=== PATIENT | female | born 1990 | race African-American/Black ===

== ENCOUNTER 2022-11-01 21:04 | Emergency (ER) | payer OTHER ==
[2022-11-01 22:08] LABS: BILIRUBIN,URINE NEGATIVE (NEGATIVE); GLUCOSE, URINE (UA) NEGATIVE (NEGATIVE); KETONES,URINE (UA) NEGATIVE (NEGATIVE); LEUKOCYTE ESTERASE, URINE MODERATE (NEGATIVE); NITRITE,URINE NEGATIVE (NEGATIVE); OCCULT BLOOD,URINE NEGATIVE (NEGATIVE); PH,URINE 6.5 PH (5.0-7.5); PROTEIN,URINE NEGATIVE (NEGATIVE); UROBILINOGEN,URINE 1 (NORMAL) E.U./dL (NORMAL)
[2022-11-01 22:09] LABS: CLARITY,URINE HAZY (CLEAR); HCG UR QUAL POSITIVE
[2022-11-01 22:19] LABS: BACTERIA,URINE Moderate /HPF (None Seen); RBC,URINE 0-5 /HPF (0-5); SQUAMOUS EPITHELIAL CELL,UR MOD Squamous (<= Few)
--- NOTE | 2022-11-02 00:37 | ED Physician Documentation ---
PD HPI FEMALE - Stated complaint Stated Complaint: - Chief complaint Chief Complaint: Abd Pain - History obtained from History obtained from: Patient - Additional information Additional information: HPI from patient. c/o right back and flank pain. She also has midline and left pelvic pain which she feels is different from the right back/flank pain (pain in one area does not radiate to the other). These pains (right flank/back as well as pelvic pain) have been ongoing for at least one month, waxing/waning, at times episodic. There are no inciting/exacerbating/ameliorating factors. Patient is , approximately 17 weeks gestation. She says she has had an ultrasound in this showing normal / expected findings for stage of at the time the US was performed. Patient also describes burning dysuria. 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 KIDNEY INFECTIONS - Past Surgical History Past Surgical History: No - Present Medications Home Medications: Ambulatory Orders Medication Instructions Recorded Confirmed HYDROcod/ACETAM 5/325 [Darden 5/325] 1 tablet PO Q6H PRN #6 tablet 11/02/22 Nitrofurantoin [Macrobid] 100 mg PO BID #14 cap 11/02/22 - Allergies Allergies/Adverse Reactions: Allergies Allergy/AdvReac Type Severity Reaction Status Date / Time No Known Drug Allergies Allergy Verified 11/01/22 21:31 - Social History Does the pt smoke?: No Smoking Status: Never smoker - Immunizations Immunizations are current?: Yes PD ED PE NORMAL - Vitals Vital signs reviewed: Yes - General General: Alert and oriented X 3, No acute distress, Well developed/nourished - HEENT HEENT: Moist mucous membranes - Neck Neck: Supple, no meningeal sign - Cardiac Cardiac: RRR, No murmur - Respiratory Respiratory: No respiratory distress, Clear bilaterally - Abdomen Abdomen: Normal bowel sounds, Soft, Non distended. No: Non tender - Back Back: No CVA TTP - Derm Derm: Normal color, Warm and dry Results - Vitals Vitals: Oxygen O2 Source Room air - Labs Labs: Laboratory Tests 11/01/22 11/01/22 11/02/22 21:53 21:53 01:48 Urine Color YELLOW YELLOW Urine Clarity HAZY CLEAR Urine pH 6.5 6.5 Ur Specific [place] 1.015 1.010 Urine Protein NEGATIVE NEGATIVE Urine Glucose (UA) NEGATIVE NEGATIVE Urine Ketones NEGATIVE NEGATIVE Urine Occult Blood NEGATIVE NEGATIVE Urine Nitrite NEGATIVE NEGATIVE Urine Bilirubin NEGATIVE NEGATIVE Urine Urobilinogen 1 (NORMAL) 1 (NORMAL) Ur Leukocyte Esterase MODERATE H MODERATE H Urine RBC 0-5 0-5 Urine WBC 6-10 H 4-5 Ur Squamous Epith Cells MOD Squamous H MOD Squamous H Urine Bacteria Moderate H Few Ur Microscopic Review INDICATED INDICATED Urine Culture Comments NOT INDICATED NOT INDICATED Urine HCG, Qual POSITIVE PD Medical Decision Making - ED course Complexity details: reviewed results, re-evaluated patient, considered differential, d/w patient ED course: Initial UA with equivocal result: moderate batercia, 6-10 WBC/hpf, but moderate squamous cells. Patient's symptoms are s/o UTI and she is ; would have lower threshold for treatment of UTI in patient. I d/w patient regarding the contamination of specimen as indicated by squamous cells. Options discussed: abx for UTI and no repeat, abx. with repeat sample (so as to allow for culture), abx depending on results of repeat UA, no abx and f/u (I recommended against this , again due to risk of complications in associated with untreated UTI). After further discussion, result of shared decision making is to hold in ED until a second UA results can be obtained, and will base treatment on this second result. Unfortunately, between waiting for second UA to be available (she had just urinated shortly before discussion regarding the above options) and combination of ED staffing with required intensity of care for the other patients in ED, there was delay of a few hours before the next urine sample was provide, resulted, and opportunity for me to discuss results w/ patient and discuss with her potential treatments, diagnoses, follow up recommendations, and return precautions. Significant confounding/complicating/delaying factor was the lack of US services at [facility] on overnight shift. US could be advantageous to assess , placenta, and pathology such as free pelvic fluid , ovarian cyst. Second UA is again contaminated with squamous cells. This first UA results were minimally into ranges of abnormal results to suggest UTI, and second UA results are just below threshold for UTI diagnosis (both UA results are considered skewed in their results given squamous cell contamination). Patient has been in ED for several hours at this point. 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 Patient is agreeable with this plan Departure - Departure Disposition: 01 Home, Self Care Clinical Impression: Urinary tract infection Qualifiers: Urinary tract infection type: acute cystitis Hematuria presence: without hematuria Qualified Code(s): N30.00 - Acute cystitis without hematuria Condition: Good Instructions: ED UTI Cystitis Female, ED Pelvic Pain Preg UKO 2 or 3 Tri Follow-Up: Linda Molina MD [Provider Admit Priv/Credential] - Prescriptions: Nitrofurantoin [Macrobid] 100 mg PO BID #14 cap HYDROcod/ACETAM 5/325 [Darden 5/325] 1 tablet PO Q6H PRN #6 tablet PRN Reason: Pain Comments: We have performed two urinalysis tests tonight. They are both borderline positive for urinary tract infection, but, unfortunately, they both have a lot of skin cells which makes it less clear if you are having a UTI or if this is simple bacteria that is normally found on the skin (the presence of skin cells in a urine specimen makes the results unreliable). Because you have been in the emergency department for extensive amount of time, and given the danger of a urinary tract infection in , it is prudent to put you back on a course of antibiotics in case you are having urinary tract infection. This is also considering that you are having symptoms of UTI. It is not clear what is causing your back/flank pain, as well as your pelvic pain. Certainly, you should follow-up with [facility] as soon as can be arranged. I have provided information for the on-call [facility] for [facility] (elsewhere on these discharge sheets); you can contact that office later this morning when they open to see if they can accommodate follow-up. Forms: PCP List Discharge Date/Time: 11/02/22 04:00
[2022-11-02 02:48] LABS: BILIRUBIN,URINE NEGATIVE (NEGATIVE); GLUCOSE, URINE (UA) NEGATIVE (NEGATIVE); KETONES,URINE (UA) NEGATIVE (NEGATIVE); LEUKOCYTE ESTERASE, URINE MODERATE (NEGATIVE); NITRITE,URINE NEGATIVE (NEGATIVE); OCCULT BLOOD,URINE NEGATIVE (NEGATIVE); PH,URINE 6.5 PH (5.0-7.5); PROTEIN,URINE NEGATIVE (NEGATIVE); UROBILINOGEN,URINE 1 (NORMAL) E.U./dL (NORMAL)
[2022-11-02 02:52] LABS: CLARITY,URINE CLEAR (CLEAR)
[2022-11-02 02:54] LABS: BACTERIA,URINE Few /HPF (None Seen); RBC,URINE 0-5 /HPF (0-5); SQUAMOUS EPITHELIAL CELL,UR MOD Squamous (<= Few)
[2022-11-02] MEDS ORDERED: NITROFURANTOIN MACRO 100 MG CAPSULE PO STA (03:27)
[2022-11-02] MEDS ORDERED: HYDROcod/ACET 5/325 Prepack 4 PO STA (03:27)
[2022-11-02 04:55] VITALS: BP 102/56; O2SAT 98
== END 2022-11-02 04:00 | disposition home or self-care (01) ==
LOC: ED 21:04
DX: O23.12 Infections of bladder in pregnancy, second trimester (principal); Z3A.17 17 weeks gestation of pregnancy; Z87.440 Personal history of urinary (tract) infections
CPT/HCPCS: 81001; 81025; 99283; A9270; 81003; 84702; 87086

== ENCOUNTER 2022-11-06 11:16 | Emergency (ER) | payer OTHER ==
[2022-11-06 11:32] VITALS: BP 108/70; O2SAT 97
--- NOTE | 2022-11-06 12:43 | ED Physician Documentation ---
History of Present Illness - Stated complaint Stated Complaint: DECREASED MOVEMENT - Chief complaint Chief Complaint: General - History obtained from History obtained from: Patient - Additonal information Additional information: The patient comes to the emergency department chief complaint of not feeling the baby move since yesterday. She is about 18 weeks and denies any vaginal bleeding or fluid leakage. She has not been following with OB because she just moved here and is trying to get established. She has been before. She is otherwise healthy. No other complaints at this time. 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 : Other HEENT: None Psych: None Musculoskeletal: None Derm: None - Past Surgical History Past Surgical History: No - Present Medications Home Medications: Ambulatory Orders Medication Instructions Recorded Confirmed No Known Home Medications 11/06/22 11/06/22 - Allergies Allergies/Adverse Reactions: Allergies Allergy/AdvReac Type Severity Reaction Status Date / Time No Known Drug Allergies Allergy Verified 11/01/22 21:31 - Social History Does the pt smoke?: No Smoking Status: Never smoker - Immunizations Immunizations are current?: Yes PD ED PE NORMAL - Vitals Vital signs reviewed: Yes - General General: Alert and oriented X 3, No acute distress, Well developed/nourished - HEENT HEENT: Atraumatic, PERRL, EOMI, Moist mucous membranes - Neck Neck: Supple, no meningeal sign - Cardiac Cardiac: RRR, No murmur - Respiratory Respiratory: No respiratory distress, Clear bilaterally - Abdomen Abdomen: Soft, Non tender, Non distended - Derm Derm: Normal color, Warm and dry, No rash - Extremities Extremities: No deformity, No edema - Neuro Neuro: Alert and oriented X 3 - Psych Psych: Normal mood, Normal affect Results - Vitals Vitals: Vital Signs - 24 hr 11/06/22 11:25 Temperature 36.7 C Heart Rate 97 Respiratory 20 Rate Blood Pressure 108/70 O2 Saturation 97 Oxygen O2 Source Room air - Rads (name of study) OB ultrasound Relevant Findings:: Final report received, See rad report PD Medical Decision Making - ED course Complexity details: reviewed results, re-evaluated patient, considered d ifferential, d/w patient ED course: Ultrasound showed a viable IUP with lots of movement and a good heart rate in the 150s. I discussed these findings with the patient. She states that she does have an appointment coming up in our women's clinic and I have encouraged her to keep this. We have discussed the need for follow-up and the usual indications for return. Departure - Departure Disposition: 01 Home, Self Care Clinical Impression: Second trimester Condition: Stable Instructions: Preg 2nd Trimester Comments: Your ultrasound looks great. Your baby's heart rate and movement are as they should be. Please make the next available appointment to follow-up with OB. Forms: PCP List Discharge Date/Time: 11/06/22 12:51
--- NOTE | 2022-11-06 13:04 | Ultrasound Report ---
PROCEDURE: OB 14+ Weeks INDICATIONS: decreased movement OUTSIDE/PRIOR DATING DATA: Outside due date per patient: 04/09/2023: TECHNIQUE: Real-time scanning was performed of the fetus, with image documentation. Endovaginal scanning: Not performed. COMPARISON: None. FINDINGS: General: A single live intrauterine gestation is present. Presentation: Cephalic Placenta: Placental position is anterior, without previa. Amniotic fluid index: Not measured, within normal limits by visual inspection. heart rate: 157 beats per minute. Maternal cervical canal: 4.1 cm long; normal length is 2.5 cm or more. The cervix appears closed. movement is observed. breathing motion is confirmed. IMPRESSION: Normal heart rate, 157 bpm Normal film breathing motion and movement can be seen. Note: Concordant preliminary findings given by the cell reliner upon the completion of the examination to Dr. Ma. Reviewed by: Adiyta Perez MD on 11/06/2022 12:02 PM AMANDA Approved by: Aditya Perez MD on 11/06/2022 12:02 PM AMANDA Station ID: [id number]
== END 2022-11-06 12:51 | disposition home or self-care (01) ==
LOC: ED 11:16
DX: O36.8120 Decreased fetal movements, second trimester, not applicable or unspecified (principal); Z3A.18 18 weeks gestation of pregnancy
CPT/HCPCS: 99283; 99284

== ENCOUNTER 2022-11-08 08:00 | Outpatient (CLI) | payer OTHER ==
[2022-11-08 21:58] LABS: CHLAMYDIA TRACHOMATIS DNA NEGATIVE (NEGATIVE); NEISSERIA GONORRHOEAE DNA NEGATIVE (NEGATIVE); TRICHOMONAS VAGINALIS DNA NEGATIVE (NEGATIVE)
== END 2022-11-08 23:59 | disposition home or self-care (01) ==
LOC: LAB.WC 08:00
PROVIDERS: ATTEND Nurse Practitioner
DX: Z34.90 Encounter for supervision of normal pregnancy, unspecified, unspecified trimester (principal); Z36.89 Encounter for other specified antenatal screening
CPT/HCPCS: 36415; 85025; 86592; 86762; 86787; 86803; 86850; 86900; 86901; 87340; 87389; 87491; 87591; 87661

== ENCOUNTER 2022-11-08 14:28 | Outpatient (CLI) | payer OTHER ==
[2022-11-08 14:59] LABS: BASOPHILS % (AUTO) 0.5 %; EOSINOPHILS # (AUTO) 0.2 10^3/uL (0.0-0.7); EOSINOPHILS % (AUTO) 2.4 %; HCT - HEMATOCRIT 37.3 % (37.0-47.0); HGB - HEMOGLOBIN 12.5 g/dL (12.0-16.0); LYMPHOCYTES # (AUTO) 1.6 10^3/uL (1.5-3.5); LYMPHOCYTES % (AUTO) 25.6 %; MEAN CORPUSCULAR HEMOGLOBIN 32.3 pg (27.0-31.0); MEAN CORPUSCULAR HGB CONC 33.5 g/dL (32.0-36.0); MEAN CORPUSCULAR VOLUME 96.4 fL (81.0-99.0); MEAN PLATELET VOLUME 8.8 fL (7.9-10.8); MONOCYTES # (AUTO) 0.6 10^3/uL (0.0-1.0); NEUTROPHILS # (AUTO) 3.8 10^3/uL (1.5-6.6); NEUTROPHILS % (AUTO) 61.3 %; PLT - PLATELET COUNT 278 10^3/uL (130-450); RED BLOOD COUNT 3.87 10^6/uL (4.20-5.40); RED CELL DISTRIBUTION WIDTH 12.2 % (12.0-15.0); WHITE BLOOD COUNT 6.2 x10^3/uL (4.8-10.8)
[2022-11-09 04:09] LABS: HBsAG SCREEN Negative (Negative); HCV AB Non Reactive (Non Reactive)
[2022-11-09 05:12] LABS: HIV SCREEN 4TH GENERATION Non Reactive (Non Reactive)
[2022-11-09 06:10] LABS: RPR Non Reactive (Non Reactive)
[2022-11-09 12:09] LABS: VARICELLA-ZOSTER AB IGG 140 index (Immune >165)
== END 2022-11-08 14:29 | disposition home or self-care (01) ==
LOC: LAB 14:28
PROVIDERS: ATTEND Nurse Practitioner
DX: Z34.90 Encounter for supervision of normal pregnancy, unspecified, unspecified trimester (principal); Z36.89 Encounter for other specified antenatal screening
CPT/HCPCS: 36415; 85025; 86592; 86762; 86787; 86803; 86850; 86900; 86901; 87340; 87389

== ENCOUNTER 2022-12-06 19:32 | Outpatient (CLI) | payer OTHER ==
--- NOTE | 2022-12-08 11:51 | Ultrasound Report ---
PROCEDURE: OB F/U or Repeat INDICATIONS: SUPERVISION OF OUTSIDE/PRIOR DATING DATA: Last menstrual period (LMP): 06/03/2022. LMP-based estimated date of delivery (LUPE): 03/10/2023. First dating scan (date and location): 11/21/2022. Estimated date of delivery (LUPE) from first dating scan: 04/10/2023. The below data below was generated using the ultrasound LUPE of 04/10/2023 TECHNIQUE: Real-time scanning was performed of the fetus, with image documentation. Endovaginal scanning: Not performed. COMPARISON: None. FINDINGS: General: A single living intrauterine gestation is present. Presentation: Breech Placenta: Placental position is anterior, without previa. Amniotic fluid index: 16.5 cm, within normal limits for gestational age. heart rate: 150 beats per minute. Maternal cervical canal: 3.8 cm long; normal length is 2.5 cm or more. anatomy: Normal ventricles/cord plexus, face, lips and orbits within normal limits. Nuchal afshan on is normal. Kidney region and urinary bladder are unremarkable. IMPRESSION: Normal brain and facial anatomy. This completes the anatomy survey. Reviewed by: Deo Barba on 12/08/2022 11:49 AM PDT Approved by: Deo Barba on 12/08/2022 11:49 AM PDT Station ID: [id number]
== END 2022-12-06 19:33 | disposition home or self-care (01) ==
LOC: DI 19:32
PROVIDERS: ATTEND Nurse Practitioner
DX: Z34.90 Encounter for supervision of normal pregnancy, unspecified, unspecified trimester (principal); Z36.89 Encounter for other specified antenatal screening

== ENCOUNTER 2022-12-10 08:00 | Outpatient (CLI) | payer OTHER ==
[2022-12-10 18:50] LABS: BASOPHILS % (AUTO) 0.5 %; EOSINOPHILS # (AUTO) 0.1 10^3/uL (0.0-0.7); HCT - HEMATOCRIT 37.4 % (37.0-47.0); HGB - HEMOGLOBIN 12.1 g/dL (12.0-16.0); LYMPHOCYTES # (AUTO) 1.4 10^3/uL (1.5-3.5); LYMPHOCYTES % (AUTO) 24.6 %; MEAN CORPUSCULAR HGB CONC 32.4 g/dL (32.0-36.0); MEAN CORPUSCULAR VOLUME 98.9 fL (81.0-99.0); MONOCYTES # (AUTO) 0.5 10^3/uL (0.0-1.0); MONOCYTES % (AUTO) 9.3 %; NEUTROPHILS # (AUTO) 3.6 10^3/uL (1.5-6.6); NEUTROPHILS % (AUTO) 63.1 %; PLT - PLATELET COUNT 294 10^3/uL (130-450); RED BLOOD COUNT 3.78 10^6/uL (4.20-5.40); RED CELL DISTRIBUTION WIDTH 12.4 % (12.0-15.0); WHITE BLOOD COUNT 5.6 x10^3/uL (4.8-10.8)
[2022-12-10 19:10] LABS: ALBUMIN 3.4 g/dL (3.2-5.5); ALBUMIN/GLOBULIN RATIO 1.1 (1.0-2.2); BILIRUBIN,TOTAL 0.3 mg/dL (0.2-1.0); CALCIUM 9.2 mg/dL (8.5-10.3); CREATININE 0.9 mg/dL (0.6-1.3); POTASSIUM 4.2 mmol/L (3.5-4.5); TOTAL PROTEIN 6.4 g/dL (6.4-8.9)
== END 2022-12-10 23:59 | disposition home or self-care (01) ==
LOC: LAB.N 08:00
PROVIDERS: ATTEND Registered Nurse
DX: R30.0 Dysuria (principal); R82.2 Biliuria
CPT/HCPCS: 36415; 80053; 83690; 85025; 87086

== ENCOUNTER 2022-12-22 08:00 | Outpatient (CLI) | payer OTHER ==
[2022-12-22 20:24] LABS: BACTERIAL VAGINOSIS DNA NEGATIVE (NEGATIVE); CANDIDA GLABRATA DNA NEGATIVE (NEGATIVE); CANDIDA GROUP DNA POSITIVE (NEGATIVE); CANDIDA KRUSEI DNA NEGATIVE (NEGATIVE); TRICHOMONAS VAGINALIS DNA NEGATIVE (NEGATIVE)
== END 2022-12-22 23:59 | disposition home or self-care (01) ==
LOC: LAB.WC 08:00
PROVIDERS: ATTEND Obstetrics & Gynecology
DX: L29.8 Other pruritus (principal)
CPT/HCPCS: 81514

== ENCOUNTER 2022-12-29 12:53 | Outpatient (CLI) | payer OTHER | END 2022-12-29 12:54 | disposition home or self-care (01) | LOC: LAB 12:53 | PROVIDERS: ATTEND Obstetrics & Gynecology | DX: Z53.9 Procedure and treatment not carried out, unspecified reason (principal) | CPT/HCPCS: 82950; 85027 ==

== ENCOUNTER 2023-01-03 12:11 | Outpatient (CLI) | payer OTHER ==
[2023-01-03 18:04] LABS: HCT - HEMATOCRIT 36.5 % (37.0-47.0); HGB - HEMOGLOBIN 12.1 g/dL (12.0-16.0); MEAN CORPUSCULAR HEMOGLOBIN 31.8 pg (27.0-31.0); MEAN CORPUSCULAR HGB CONC 33.2 g/dL (32.0-36.0); MEAN CORPUSCULAR VOLUME 95.8 fL (81.0-99.0); MEAN PLATELET VOLUME 10.3 fL (7.9-10.8); RED BLOOD COUNT 3.81 10^6/uL (4.20-5.40); RED CELL DISTRIBUTION WIDTH 12.6 % (12.0-15.0); WHITE BLOOD COUNT 5.9 x10^3/uL (4.8-10.8)
[2023-01-03 18:37] LABS: THYROID STIMULATING HORMONE 1.38 uIU/mL (0.34-5.60)
== END 2023-01-03 12:12 | disposition home or self-care (01) ==
LOC: LAB.N 12:11
PROVIDERS: ATTEND Obstetrics & Gynecology
DX: O99.342 Other mental disorders complicating pregnancy, second trimester (principal)
CPT/HCPCS: 36415; 82950; 84443; 85027

== ENCOUNTER 2023-01-06 08:00 | Outpatient (CLI) | payer OTHER ==
[2023-01-06 20:12] LABS: BACTERIAL VAGINOSIS DNA NEGATIVE (NEGATIVE); CANDIDA GLABRATA DNA NEGATIVE (NEGATIVE); CANDIDA GROUP DNA POSITIVE (NEGATIVE); CANDIDA KRUSEI DNA NEGATIVE (NEGATIVE); TRICHOMONAS VAGINALIS DNA NEGATIVE (NEGATIVE)
== END 2023-01-06 23:59 | disposition home or self-care (01) ==
LOC: LAB.WC 08:00
PROVIDERS: ATTEND Nurse Practitioner
DX: N89.8 Other specified noninflammatory disorders of vagina (principal)
CPT/HCPCS: 81514

== ENCOUNTER 2023-01-27 15:42 | Outpatient (CLI) | payer OTHER ==
[2023-01-27 16:14] VITALS: BP 109/59
[2023-01-27 16:42] LABS: BASOPHILS % (AUTO) 0.3 %; EOSINOPHILS # (AUTO) 0.2 10^3/uL (0.0-0.7); HCT - HEMATOCRIT 36.5 % (37.0-47.0); HGB - HEMOGLOBIN 11.9 g/dL (12.0-16.0); LYMPHOCYTES # (AUTO) 1.5 10^3/uL (1.5-3.5); LYMPHOCYTES % (AUTO) 19.7 %; MEAN CORPUSCULAR HEMOGLOBIN 31.7 pg (27.0-31.0); MEAN CORPUSCULAR HGB CONC 32.6 g/dL (32.0-36.0); MEAN CORPUSCULAR VOLUME 97.3 fL (81.0-99.0); MEAN PLATELET VOLUME 9.2 fL (7.9-10.8); MONOCYTES # (AUTO) 0.7 10^3/uL (0.0-1.0); NEUTROPHILS # (AUTO) 5.1 10^3/uL (1.5-6.6); NEUTROPHILS % (AUTO) 68.5 %; PLT - PLATELET COUNT 251 10^3/uL (130-450); RED BLOOD COUNT 3.75 10^6/uL (4.20-5.40); RED CELL DISTRIBUTION WIDTH 12.5 % (12.0-15.0); WHITE BLOOD COUNT 7.4 x10^3/uL (4.8-10.8)
--- NOTE | 2023-01-27 17:10 | PROVIDER PROGRESS NOTE ---
- HPI Chief Complaint: GI symptoms Current : Vital Signs Temperature 98.1 F 01/27/23 15:56 Heart Rate 76 01/27/23 15:56 Respiratory Rate 16 01/27/23 15:56 Blood Pressure 109/59 L 01/27/23 15:56 Temperature 98.1 F 01/27/23 15:56 Heart Rate 76 01/27/23 15:56 Respiratory Rate 16 01/27/23 15:56 Blood Pressure 109/59 L 01/27/23 15:56 O2 Saturation If not protocol: Oxygen Flow, liters/minute - Procedures OB Procedure Performed: NST Diagnosis/Indication for NST: Other (Contractions) Service Date of procedure: 01/27/23 (Read 01/27/23) Procedure Details: Patient is a 32-year-old -0-3-1 at 29 weeks 4 days gestation presenting today for vaginal pressure. She has been somewhat sick with some diarrhea and some nausea although no vomiting. No fever or chills. Has had decreased intake. Denies dysuria. No known sick contacts. Physical Exam Constitutional: alert, no acute distress, Appears very comfortable. Cardiovascular: Regular rate and rhythm. Respiratory: no respiratory distress. Abdomen: Nondistended. Gravid. Mild suprapubic tenderness. No CVA tenderness. Psych: affect and mood appropriate, normal interaction, good eye contact. FHT: 130 beats per baseline, moderate variability, accelerations present, no decelerations. Reactive NST [place]: 2-6, irregular SVE: 0/0/-3 Labs: WBC 7.4. UA not concerning for UTI. 1. 29 weeks gestation 2. False labor -Patient observed in triage for 2 hours and was unchanged. Discharged with labor precautions 3. Gastroenteritis: -Encouraged hydration, Imodium as needed
[2023-01-27 17:26] LABS: BILIRUBIN,URINE NEGATIVE (NEGATIVE); GLUCOSE, URINE (UA) NEGATIVE (NEGATIVE); KETONES,URINE (UA) NEGATIVE (NEGATIVE); LEUKOCYTE ESTERASE, URINE SMALL (NEGATIVE); NITRITE,URINE NEGATIVE (NEGATIVE); OCCULT BLOOD,URINE NEGATIVE (NEGATIVE); PH,URINE 6.5 PH (5.0-7.5); PROTEIN,URINE NEGATIVE (NEGATIVE); UROBILINOGEN,URINE 2 E.U./dL (NORMAL)
[2023-01-27 17:33] LABS: BACTERIA,URINE Many /HPF (None Seen); CLARITY,URINE HAZY (CLEAR); MUCUS,URINE Few Strands; RBC,URINE 0-5 /HPF (0-5); SQUAMOUS EPITHELIAL CELL,UR MANY Squamous (<= Few)
== END 2023-01-27 18:54 | disposition home or self-care (01) ==
LOC: WFO 15:42 → FBP 15:44 → WFO 18:54
PROVIDERS: ATTEND Obstetrics & Gynecology
DX: O47.03 False labor before 37 completed weeks of gestation, third trimester (principal); O99.613 Diseases of the digestive system complicating pregnancy, third trimester; K52.9 Noninfective gastroenteritis and colitis, unspecified; Z3A.29 29 weeks gestation of pregnancy
CPT/HCPCS: 36415; 59025; 81001; 85025; 87086; 99215

== ENCOUNTER 2023-02-06 03:43 | Outpatient (CLI) | payer OTHER ==
[2023-02-06] MEDS ORDERED: ONDANSETRON 4 MG/2 ML VIAL IVP PRN (04:49)
[2023-02-06] MEDS ORDERED: LACTATED RINGERS 1,000 ML IV ONE ×2 (04:49→06:24)
[2023-02-06] MEDS ORDERED: FAMOTIDINE 20 MG/2 ML VIAL IVP SCH (06:30)
[2023-02-06 06:48] VITALS: BP 106/60
[2023-02-06] MEDS ORDERED: ONDANSETRON 4 MG/2 ML VIAL IVP STA (07:46)
[2023-02-06 07:57] VITALS: O2SAT 97
--- NOTE | 2023-02-06 10:23 | PROVIDER PROGRESS NOTE ---
- HPI Chief Complaint: Other (Vomitting and Diarrhea) Current : Current EDU 04/10/23 Gestation 31 Weeks and 0 Days 5 Para 1 Vital Signs Temperature 98.6 F 02/06/23 04:15 Heart Rate 95 02/06/23 04:15 Respiratory Rate 18 02/06/23 04:15 Blood Pressure 107/74 02/06/23 04:15 O2 Saturation 97 02/06/23 04:15 Temperature 97.7 F 02/06/23 08:52 Heart Rate 85 02/06/23 08:52 Respiratory Rate 16 02/06/23 08:52 Blood Pressure 106/60 02/06/23 08:52 O2 Saturation 97 02/06/23 04:15 If not protocol: Oxygen Flow, liters/minute - Exam VSS NAD Conjunctiva pink, pale sclera no increased work of breathing Abd soft, NT, ND, visibly gravid at EFM: 145mod sarahy + A cells no D cells, reactive [place]: acontractile Cx: deferred Ext: neg CCE U/S: BPP 10/11 - showing reassuring status right now EFW 45%ile - showing reassuring growth throughout the . - Procedures OB Procedure Performed: NST Diagnosis/Indication for NST: Decreased movement NST Procedure: NST Procedure Start Date 02/06/23 Start Time 05:00 Stop Time 05:30 Vibroacoustic Stimulation Used No Patient States Movement Yes Service Date of procedure: 02/06/23 Procedure Details: reactive and reassuring Findings: patient given 1+ L of IVF, received NST baby found to be reactive mom reports that baby does move - though less / differently than before so we ordered a BPP as well as growth to check for acute or chronic processes both reassuring strict precautions reviewed, WOC so additional precautions taken. for GI upset - pepcid IV x1 given for the streaks of blood in the vomit and zofran. did soil herself x1 while here -- would like for whatever is causing this to get out of her system. has no identifiable source of this illness. no sick contacts, no fevers, no recent concerning food ingestion. - Plan Plan: D/C home with precautions. D/C home with ODT zofran. s/p 1+L of IVF
--- NOTE | 2023-02-06 11:57 | Ultrasound Report ---
PROCEDURE: OB F/U or Repeat INDICATIONS: growth OUTSIDE/PRIOR DATING DATA: Last menstrual period (LMP): 06/03/2022. LMP-based estimated date of delivery (LUPE): 03/10/2023. First dating scan (date and location): 11/21/2022. Estimated date of delivery (LUPE) from first dating scan: 04/10/2023. The below data below was generated using the ultrasound LUPE of 04/10/2023 TECHNIQUE: Real-time scanning was performed of the fetus, with image documentation and biometric measurements. COMPARISON: OB ultrasound 11/06/2022 FINDINGS: General: A single living intrauterine gestation is present. Presentation: Vertex Placenta: Placental position is anterior, without previa. Amniotic fluid index: 16.9 cm, within normal limits for gestational age. heart rate: 147 beats per minute. Maternal cervical canal: 3.3 cm long; normal length is 2.5 cm or more. biometrics: Biparietal diameter: 7.5 cm 30 weeks 1 day 17th percentile Head circumference: 27.9 cm 30 weeks 4 days 8 percentile Abdominal circumference: 27.3 cm 31 weeks 2 days 57th percentile Femur length: 6.1 cm 31 weeks 4 days 58th percentile Estimated gestational age from initial scan: 31 weeks 0 days Composite gestational age from present scan: 30 weeks 6 days Estimated weight and percentile: 1721 g 45th percentile Measurement variability in biometric dating: +/- 10 days from 12-20 weeks gestation, +/- 2 weeks from 20-30 weeks gestation, +/- 3 weeks at 30 weeks gestation or more. Other: Umbilical ratio is 3.5, 2.3, 1.9 IMPRESSION: Single live intrauterine . BPP 8 out of 8 Head circumference is noted at the 8th percentile Reviewed by: Marisa Schaffer MD on 02/06/2023 11:56 AM PST Approved by: Marisa Schaffer MD on 02/06/2023 11:56 AM PST Station ID: [id number]
--- NOTE | 2023-02-06 12:47 | Ultrasound Report ---
PROCEDURE: OB Biophysical Profile INDICATIONS: decreased movement OUTSIDE/PRIOR DATING DATA: Last menstrual period (LMP): 06/03/2022. LMP-based estimated date of delivery (LUPE): 03/10/2023. First dating scan (date and location): 11/21/2022. Estimated date of delivery (LUPE) from first dating scan: 04/10/2023. The below data below was generated using the ultrasound LUPE of 04/10/2023 TECHNIQUE: Real-time scanning was performed of the fetus, with image documentation and biometric measurements. COMPARISON: OB ultrasound 11/06/2022 FINDINGS: General: A single living intrauterine gestation is present. Presentation: Vertex Placenta: Placental position is anterior, without previa. Amniotic fluid index: 16.9 cm, within normal limits for gestational age. heart rate: 147 beats per minute. Maternal cervical canal: 3.3 cm long; normal length is 2.5 cm or more. biometrics: Biparietal diameter: 7.5 cm 30 weeks 1 day 17th percentile Head circumference: 27.9 cm 30 weeks 4 days 8 percentile Abdominal circumference: 27.3 cm 31 weeks 2 days 57th percentile Femur length: 6.1 cm 31 weeks 4 days 58th percentile Estimated gestational age from initial scan: 31 weeks 0 days Composite gestational age from present scan: 30 weeks 6 days Estimated weight and percentile: 1721 g 45th percentile Measurement variability in biometric dating: +/- 10 days from 12-20 weeks gestation, +/- 2 weeks from 20-30 weeks gestation, +/- 3 weeks at 30 weeks gestation or more. Other: Umbilical ratio is 3.5, 2.3, 1.9 IMPRESSION: Single live intrauterine . BPP 8 out of 8 Head circumference is noted at the 8th percentile Reviewed by: Marisa Schaffer MD on 02/06/2023 12:45 PM PST Approved by: Marisa Schaffer MD on 02/06/2023 12:45 PM PST Station ID: [id number]
== END 2023-02-06 08:30 | disposition home or self-care (01) ==
LOC: WFO 03:43 → FBP 03:46 → WFO 08:30
PROVIDERS: ATTEND Obstetrics & Gynecology
DX: O36.8130 Decreased fetal movements, third trimester, not applicable or unspecified (principal); Z3A.31 31 weeks gestation of pregnancy; O99.891 Other specified diseases and conditions complicating pregnancy; R19.7 Diarrhea, unspecified; O99.613 Diseases of the digestive system complicating pregnancy, third trimester; K92.0 Hematemesis
CPT/HCPCS: 59025; 76816; 76819; 96361; 96374; 96375; 96376; 99215; J7120

== ENCOUNTER 2023-02-21 16:20 | Outpatient (CLI) | payer OTHER ==
[2023-02-21 16:54] LABS: BASOPHILS % (AUTO) 0.2 %; EOSINOPHILS % (AUTO) 0.5 %; HCT - HEMATOCRIT 33.1 % (37.0-47.0); HGB - HEMOGLOBIN 11.1 g/dL (12.0-16.0); LYMPHOCYTES # (AUTO) 0.5 10^3/uL (1.5-3.5); LYMPHOCYTES % (AUTO) 8.4 %; MEAN CORPUSCULAR HEMOGLOBIN 31.3 pg (27.0-31.0); MEAN CORPUSCULAR HGB CONC 33.5 g/dL (32.0-36.0); MEAN CORPUSCULAR VOLUME 93.2 fL (81.0-99.0); MEAN PLATELET VOLUME 9.4 fL (7.9-10.8); MONOCYTES # (AUTO) 0.7 10^3/uL (0.0-1.0); MONOCYTES % (AUTO) 12.3 %; NEUTROPHILS # (AUTO) 4.7 10^3/uL (1.5-6.6); NEUTROPHILS % (AUTO) 77.9 %; PLT - PLATELET COUNT 208 10^3/uL (130-450); RED BLOOD COUNT 3.55 10^6/uL (4.20-5.40); RED CELL DISTRIBUTION WIDTH 12.1 % (12.0-15.0)
[2023-02-21] MEDS ORDERED: ACETAMINOPHEN 325 MG TABLET PO PRN (16:57)
[2023-02-21 17:07] LABS: ALBUMIN 3.1 g/dL (3.2-5.5); ALBUMIN/GLOBULIN RATIO 1.1 (1.0-2.2); BILIRUBIN,TOTAL 0.4 mg/dL (0.2-1.0); CALCIUM 8.7 mg/dL (8.5-10.3); CREATININE 0.7 mg/dL (0.6-1.3); POTASSIUM 3.2 mmol/L (3.5-4.5); TOTAL PROTEIN 5.9 g/dL (6.4-8.9)
[2023-02-21] MEDS: LACTATED RINGERS 1,000 ML IV SCH ×2 (17:09→18:25)
[2023-02-21 18:18] VITALS: BP 121/59; O2SAT 98
[2023-02-21 18:19] LABS: INFLUENZA A- RESP PCR PANEL NOT DETECTED; INFLUENZA B - RESP PCR PANEL NOT DETECTED; RSV- RESP PCR PANEL NOT DETECTED; SARS-CoV-2 -RESP PCR PANEL DETECTED
--- NOTE | 2023-02-21 18:36 | PROVIDER PROGRESS NOTE ---
- HPI Chief Complaint: Other (Patient presents for headache, fever, generalized malaise. Positive movement. Denies vaginal bleeding and leakage of fluid. Denies shortness of breath. Has had congestion and runny nose.She also reports a fever of 102.0 at home. Patient has been afebrile here) Current : Vital Signs Temperature 99.0 F 02/21/23 16:36 Heart Rate 131 H 02/21/23 16:36 Respiratory Rate 20 02/21/23 16:36 Blood Pressure 118/67 02/21/23 16:36 Temperature 98.2 F 02/21/23 18:12 Heart Rate 116 H 02/21/23 18:12 Respiratory Rate 16 02/21/23 18:12 Blood Pressure 121/59 L 02/21/23 18:12 O2 Saturation 98 02/21/23 18:12 If not protocol: Oxygen Flow, liters/minute - Exam Gen: NAD Pulm: CTA bilaterally Cardiac: RRR Abdomen: gravid, non tender FHT: initially tachycardic, after fluid bolus 150, moderate variability, +accels, no decels, reactive NST - Procedures OB Procedure Performed: NST Diagnosis/Indication for NST: Other (covid) NST Procedure: NST Procedure Start Time 05:00 Stop Time 05:30 33+1 weeks covid+ initially tachycardic, after fluid bolus 150, moderate variability, +accels, no decels, reactive NST - Plan Plan: COVID-positive on swab. Recommended Paxlovid and Rx sent. Advised patient to return for respiratory difficulty, decreased movement, signs and symptoms of labor or any other concerns. Discussed increased risk with COVID in .
--- NOTE | 2023-02-21 18:41 | Discharge Plan ---
Discharge Plan Problem Reviewed?: Yes Disposition: Home, Self Care Condition: Good No Smoking: If you smoke, Please STOP! Call for help.
== END 2023-02-21 18:56 | disposition home or self-care (01) ==
LOC: WFO 16:20 → FBP 16:23 → WFO 18:56
PROVIDERS: ATTEND Obstetrics & Gynecology Obstetrics
DX: O98.513 Other viral diseases complicating pregnancy, third trimester (principal); U07.1 COVID-19; Z3A.33 33 weeks gestation of pregnancy; O99.891 Other specified diseases and conditions complicating pregnancy; R00.0 Tachycardia, unspecified
CPT/HCPCS: 36415; 59025; 80053; 85025; 87637; 96360; 99213; A9270; J7120

== ENCOUNTER 2023-03-08 11:46 | Outpatient (CLI) | payer OTHER ==
--- NOTE | 2023-03-08 12:12 | PROCEDURE REPORT ---
- HPI Current EDU 04/10/23 Gestation 35 Weeks and 2 Days 5 Para 1 Vital Signs Temperature 97.8 F 03/08/23 12:13 Heart Rate 103 H 03/08/23 12:13 Respiratory Rate 18 03/08/23 12:13 Blood Pressure 111/63 03/08/23 12:13 Temperature 97.8 F 03/08/23 12:13 Heart Rate 103 H 03/08/23 12:13 Respiratory Rate 18 03/08/23 12:13 Blood Pressure 111/63 03/08/23 12:13 O2 Saturation If not protocol: Oxygen Flow, liters/minute - NST Procedure NST Procedure Start Date 03/08/23 Start Time 11:55 Stop Time 12:20 Vibroacoustic Stimulation Used No Patient States Movement Yes: decreased today - Results and Plan Plan: Patient is a 32-year-old -0-4-1 at 35 weeks 2 days gestation here from clinic for NST for decreased movement. She has felt movement since arrival. NST Performed 03/08/2023 NST Read 03/08/2023 FHT: 150 bpm baseline, moderate variability, accelerations present, no decelerations. Reactive NST [place]: 2 to 6 minutes, soft, declined cervical exam RAY 12 cm Diagnosis Decreased movement 35 weeks gestation
[2023-03-08 12:24] VITALS: BP 111/63
== END 2023-03-08 13:30 | disposition home or self-care (01) ==
LOC: WFO 11:46 → FBP 11:48 → WFO 13:30
PROVIDERS: ATTEND Obstetrics & Gynecology
DX: O36.8130 Decreased fetal movements, third trimester, not applicable or unspecified (principal); O99.213 Obesity complicating pregnancy, third trimester; Z3A.35 35 weeks gestation of pregnancy
CPT/HCPCS: 59025

== ENCOUNTER 2023-03-08 16:27 | Outpatient (CLI) | payer OTHER ==
--- NOTE | 2023-03-09 13:09 | Ultrasound Report ---
PROCEDURE: OB Follow up INDICATIONS: OBESITY COMPLICATING OUTSIDE/PRIOR DATING DATA: Last menstrual period (LMP): 06/03/2022. LMP-based estimated date of delivery (LUPE): 03/10/2023. First dating scan (date and location): 11/21/2022. Estimated date of delivery (LUPE) from first dating scan: 04/10/2023. The below data below was generated using the ultrasound LUPE of 04/10/2023 TECHNIQUE: Real-time scanning was performed of the fetus, with image documentation and biometric measurements. Endovaginal scanning: Not performed. COMPARISON: 02/06/2023 FINDINGS: General: A single living intrauterine gestation is present. Presentation: Vertex Placenta: Placental position is anterior, without previa. Amniotic fluid index: 12.8 cm, within normal limits for gestational age. Largest pocket measured 3. 7 cm. heart rate: 148 beats per minute. Maternal cervical canal: 3.8 cm long; normal length is 2.5 cm or more. biometrics: Biparietal diameter: 8.01 cm, 32 weeks and 1 day (1.0 percentile) Head circumference: 30.82 cm, 34 weeks and 3 days (6.0 percentile) Abdominal circumference: 31.25 cm, 35 weeks and 1 day (54.9 percentile) Femur length: 6.75 cm, 34 weeks and 5 days (28 percentile) Estimated gestational age from initial scan: 35 weeks and 2 days Composite gestational age from present scan: 34 weeks and 1 day Estimated weight and percentile: 2482 g (30th percentile) Measurement variability in biometric dating: +/- 10 days from 12-20 weeks gestation, +/- 2 weeks from 20-30 weeks gestation, +/- 3 weeks at 30 weeks gestation or more. Other: Incidental note of a nuchal cord. IMPRESSION: Single living intrauterine gestation with estimated sonographic gestational age of appro ximately 34 weeks and 1 day versus approximately 35 weeks and 2 days by initial ultrasound. Expected interval growth has occurred. Estimated weight of approximately 2482 g which correlates with th e 30th percentile for gestational age. Of note, biparietal diameter measures at the 1.0 percentile an d head circumference measures at the 6.0 percentile. Reviewed by: Jovani Perez MD on 03/09/2023 1:08 PM PST Approved by: Jovani Perez MD on 03/09/2023 1:08 PM [facility] Station ID: [id number]
== END 2023-03-08 16:28 | disposition home or self-care (01) ==
LOC: DI 16:27
PROVIDERS: ATTEND Obstetrics & Gynecology
DX: O99.213 Obesity complicating pregnancy, third trimester (principal); Z3A.00 Weeks of gestation of pregnancy not specified

== ENCOUNTER 2023-03-16 08:00 | Outpatient (CLI) | payer OTHER | END 2023-03-16 23:59 | disposition home or self-care (01) | LOC: LAB.WC 08:00 | PROVIDERS: ATTEND Obstetrics & Gynecology | DX: Z36.85 Encounter for antenatal screening for Streptococcus B (principal) | CPT/HCPCS: 87081; 87181; 87797 ==

== ENCOUNTER 2023-03-22 09:40 | Inpatient (IN) | payer OTHER ==
[2023-03-22] MEDS ORDERED: LACTATED RINGERS 1,000 ML ONE (10:19)
[2023-03-22] MEDS ORDERED: CARBOPROST TROMETHAMINE 250 MCG/ML AMP IM PRN (10:21)
[2023-03-22] MEDS ORDERED: AMPICILLIN 2 GM in SODIUM CHLORIDE 0.9% MINIBAG 100 ML IV ONE (10:21)
[2023-03-22] MEDS ORDERED: METHYLERGONOVINE 0.2 MG/ML VIAL IM PRN (10:21)
[2023-03-22] MEDS ORDERED: hydrALAZINE INJ 20 MG/ML VIAL IVP PRN ×2 (10:21)
[2023-03-22] MEDS ORDERED: lidocaine 1% 20 ML MDV ID PRN (10:21)
[2023-03-22] MEDS ORDERED: ACETAMINOPHEN 500 MG TABLET PO PRN ×2 (10:21→17:46)
[2023-03-22] MEDS ORDERED: NIFEdipine 10 MG CAPSULE PO PRN (10:21)
[2023-03-22] MEDS ORDERED: TERBUTALINE 1 MG/ML VIAL SUBQ PRN (10:21)
[2023-03-22] MEDS ORDERED: TRANEXAMIC ACID IN NACL 1,000 MG/100 ML BAG IV PRN (10:21)
[2023-03-22] MEDS ORDERED: OXYTOCIN/SODIUM CHLORIDE 500 ML IV PRN (10:21)
[2023-03-22] MEDS ORDERED: fentaNYL 100 MCG/2 ML VIAL IVP PRN (10:21)
[2023-03-22] MEDS ORDERED: SODIUM CHLORIDE FLUSH 0.9% 10 ML SYRINGE IVP PRN (10:21)
[2023-03-22] MEDS ORDERED: OXYTOCIN 10 UNIT/ML VIAL IM PRN (10:21)
[2023-03-22] MEDS ORDERED: LACTATED RINGERS 1,000 ML IV PRN (10:21)
[2023-03-22] MEDS ORDERED: miSOPROStoL 200 MCG TABLET PR PRN (10:21)
[2023-03-22] MEDS ORDERED: LABETALOL 20 MG/4 ML SYRINGE IVP PRN ×3 (10:21)
[2023-03-22] MEDS ORDERED: miSOPROStoL 200 MCG TABLET BC PRN (10:21)
[2023-03-22] MEDS ORDERED: ROPIVACAINE 0.2% 200 MG/100 ML BAG EP ONE (10:23)
[2023-03-22 10:37] LABS: BASOPHILS % (AUTO) 0.5 %; EOSINOPHILS # (AUTO) 0.1 10^3/uL (0.0-0.7); EOSINOPHILS % (AUTO) 2.1 %; HCT - HEMATOCRIT 35.3 % (37.0-47.0); HGB - HEMOGLOBIN 11.6 g/dL (12.0-16.0); LYMPHOCYTES # (AUTO) 1.7 10^3/uL (1.5-3.5); LYMPHOCYTES % (AUTO) 30.3 %; MEAN CORPUSCULAR HEMOGLOBIN 31.6 pg (27.0-31.0); MEAN CORPUSCULAR HGB CONC 32.9 g/dL (32.0-36.0); MEAN CORPUSCULAR VOLUME 96.2 fL (81.0-99.0); MEAN PLATELET VOLUME 10.6 fL (7.9-10.8); MONOCYTES # (AUTO) 0.5 10^3/uL (0.0-1.0); MONOCYTES % (AUTO) 8.2 %; NEUTROPHILS # (AUTO) 3.3 10^3/uL (1.5-6.6); NEUTROPHILS % (AUTO) 58.2 %; PLT - PLATELET COUNT 213 10^3/uL (130-450); RED BLOOD COUNT 3.67 10^6/uL (4.20-5.40); RED CELL DISTRIBUTION WIDTH 12.5 % (12.0-15.0); WHITE BLOOD COUNT 5.6 x10^3/uL (4.8-10.8)
[2023-03-22] MEDS ORDERED: LIDOCAINE 2%-EPI 1:100000 20 ML MDV ONE (10:44)
[2023-03-22] MEDS: LACTATED RINGERS 1,000 ML IV SCH ×2 (10:53→14:51)
[2023-03-22] MEDS ORDERED: ePHEDrine 50 MG/ML VIAL IVP PRN (10:58)
[2023-03-22] MEDS ORDERED: NALOXONE 0.4 MG/ML VIAL IVP PRN (10:58)
[2023-03-22] MEDS ORDERED: ROPIVACAINE 0.2% 200 MG/100 ML BAG EP PRN (10:58)
[2023-03-22] MEDS ORDERED: OXYTOCIN/SODIUM CHLORIDE 500 ML IV SCH (14:00)
[2023-03-22] MEDS: AMPICILLIN 1 GM in SODIUM CHLORIDE 0.9% MINIBAG 100 ML IV SCH (14:51)
--- NOTE | 2023-03-22 16:04 | HISTORY & PHYSICAL EXAMINATION ---
History and Physical - History and Physical CC: ruptured membranes. HPI: Patient comes in with SROM today. meconium in fluid. some contractions. baby moving. ready for epidural upon arrival. Last ultrasound: The below data below was generated using the ultrasound LUPE of 04/10/2023 TECHNIQUE: Real-time scanning was performed of the fetus, with image documentation and biometric measurements. Endovaginal scanning: Not performed. COMPARISON: 02/06/2023 FINDINGS: General: A single living intrauterine gestation is present. Presentation: Vertex Placenta: Placental position is anterior, without previa. Amniotic fluid index: 12.8 cm, within normal limits for gestational age. Largest pocket measured 3.7 am. heart rate: 148 beats per minute. Maternal cervical canal: 3.8 cm long; normal length is 2.5 cm or more. biometrics: Biparietal diameter: 8.01 cm, 32 weeks and 1 day (1.0 percentile) Head circumference: 30.82 cm, 34 weeks and 3 days (6.0 percentile) Abdominal circumference: 31.25 cm, 35 weeks and 1 day (54.9 percentile) Femur length: 6.75 cm, 34 weeks and 5 days (28 percentile) Estimated gestational age from initial scan: 35 weeks and 2 days Composite gestational age from present scan: 34 weeks and 1 day Estimated weight and percentile: 2482 g (30th percentile) Measurement variability in biometric dating: +/- 10 days from 12-20 weeks gestation, +/- 2 weeks from 20-30 weeks gestation, +/- 3 weeks at 30 weeks gestation or more. Other: Incidental note of a nuchal cord. 03/09/2023 1:12PM (GMT-08:00) Allergies: Allergies Reviewed: Done No Known Allergies Social History Reviewed: Done Medications: Meds Reviewed: Done * Pepcid AC Maximum Strength 20 mg tablet (famotidine) 1 tablet by mouth twice a day Zyrtec 10 mg tablet (cetirizine) * electric breast pump Use 1 device as directed as directed USE TO EXPRESS MILK ACCORDING TO BABY'S NEEDS Z39.1 LUPE 04/10/2022 cholecalciferol (vitamin D3) 50 mcg (2,000 unit) capsule (cholecalciferol (vitamin d3)) 1 capsule by mouth once a day Fish Oil 120 mg-180 mg- 60 mg-1,200 mg capsule,delayed release(DR/EC) (aacge-3q-fmv-epa-fish oil) 1 capsule by mouth once a day promethazine 25 mg tablet (promethazine) Take 1 tablet by mouth every six hours as needed for nausea Formula 9 mg iron- 267 mcg tablet ( vit 93-iron fum-folic) sertraline 100 mg tablet (sertraline) Take 1 tablet by mouth once a day start with 1/2 tablet for 2 weeks, then increase to full dose hydroxyzine HCl 25 mg tablet (hydroxyzine hcl) Take 1 tablet by mouth twice a day as needed As needed for anxiety or sleep Problems: screening for streptococcus B (ICD-V28.6) (OMA12-R97.85) microcephaly (ICD-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 Past Surgical History: [place] teeth removal (2022) Vital Signs: Patient Profile: 32 Years Old Female Height: 65 inches Weight: 211 pounds BMI: 35.24 BP sittin / 70 Cuff size: regular Vitals Entered By: Kelli EM (March 16, 2023 1:08 PM) Meds Reviewed: Done Allergies Reviewed: Done No known allergies: T Flowsheet View for Follow-up Visit Estimated weeks of gestation: 36 3/7 Weight: 211 Blood pressure: 110 / 70 Headache: yesterday Nausea/vomiting: on and off Edema: compression socks Vaginal bleeding: no Vaginal discharge: mucus plug activity: aibt less Labor symptoms: few ctx position: vertex Cx Dilation: 1.5 Cx Effacement: 60% Cx Station: -3 Taking vits? Y Smoking: n/a Next visit: 1 wk Comment: not much movement but then ok in waiting room. to go in if decreased. gbs today. thinks she will have labor soon. -DJL LMP: 06/03/2022 LUPE by LMP: 03/10/2023 US: 11/21/22 (FAS) LUPE final: 04/10/2023 Vaginal pressure: Multiple episodes per day. No cervical change. Discussed warning signs. covid 02/21/23 baby's head small on ultrasound 03/09/23 with nuchal cord. HC 6th%ile EFW 2486 g 30%ile at 35 weeks. Pre- Weight: 180 per pt BMI: now 32. Blood type: O+ Antibody Screen: Negative CBC: PLT 278 HCT 37.3 HGB 12.5 RUB: equivocal VZV: equivocal HBsAg: Negative HepC: N-R RPR/AB-EIA: N-R HIV: 06/30 negative Covid: initial set of [employer], encouraged. PAP: 09/22/22 normal GC/CT: 10/13/22 negative HSV: denies self/partner Genetic testing: not interested [place] RSV: 02/16/2023 FAS: (11/21/2022) >10 day discrepency from LMP Placenta: anterior Cord: 3VC RAY: WNL EFW: 356 (no first trimester scan for % calculation) 50gm OGCT: 65 3HR GTT: TDAP: GIVEN 01/19/2023 Breast Pump: given 01/05 2nd Antibody screen: 3rd trimester CBC: PLT 12.1 HCT 36.5 HGB 12.1 3rd trimester HIV GBS: collected 03/16/23 Delivery plan: Contraception: Immediate Mirena Impression & Recommendations: Problem # 1: Supervision of normal (ICD-V22.1) (ELT44-S56.90) in labor and srom with meconium. Epidural. pitocin as needed after. peds for delivery. Problem #2. GBS + - ampicillin started. Gender ID Identifies as Female P: 1 A: 3 SAB: 1 IAB: 1 Ectopics: 1 LMP: 06/03/2022 EDC: 04/10/2023 Height: 65 (03/01/2023 10:41:45 AM) Weight: 211 Weight (pre-): 180 (11/08/2022 1:35:01 PM) Gonnorhea: negative (10/13/2022 1:56:18 PM) Chlamydia: NEGATIVE (11/08/2022 1:45:00 PM) Blood Type: O+ (11/08/2022 9:56:16 AM) RH Type: neg (11/08/2022 9:56:16 AM) Last Antibody Screen: negative (11/08/2022 9:56:17 AM) Is pt sexually active? yes Gonnorrhea: negative (10/13/2022 1:56:18 PM) Chlamydia: NEGATIVE (11/08/2022 1:45:00 PM) HIV: negative (06/30/2022 1:55:54 PM) RPR: Non Reactive (11/08/2022 2:49:00 PM) Last Pap: Normal (09/22/2022 9:59:27 AM)
--- NOTE | 2023-03-22 16:12 | DELIVERY NOTE ---
Delivery Note - Labor Labor: positive: Augmented by oxytocin - Delivery Method Delivery Method: positive: Spontaneous vaginal delivery - Presentation Presentation: positive: Vertex, OA - occiput anterior - Nuchal Cord Nuchal Cord: positive: None - Anesthetic Anesthetic Type: - Episiotomy Type Episiotomy Type: positive: None - Laceration Laceration: positive: 2nd degree, Periurethral (on left.) - Suture Suture Type: positive: Vicryl Suture Size: positive: 3-0 - Delivery Outcome Delivery Outcome: positive: Livebirth - [place]: positive: Bulb syringe, Stimulated, Warmed, [place] used, Warmer used [place] sex: positive: Male : Jonh - Cord Cord: positive: 3 vessels - Placenta Placenta: positive: Intact, Spontaneous - Estimated Blood Loss Estimated Blood Loss (in cc): 350 - Post Delivery Events Post Delivery Events: positive: No post delivery events - Delivery Comments (Free Text/Narrative) Delivery Comments (Free Text/Narrative): Patient presents with SROM and mec. In early labor, 3 cm. Epidural placed. Ampicillin for GBS. Pitocin to augment as minimal contractions after epidural. Got to complete and I was called for delivery. I got ready and we positioned the patient. She pushed thru one contraction and delivered her baby in OA position. there was no nuchal cord, although one was noted on uls last week. Mom did not want baby boy John on her chest so I held him and suctioned and dried him. Dr. Messina was present for delivery and help baby while I clamped cord and dad cut it and then she took him to the warmer. He required suctioning and PPV. Apgars 5/7/9. He is with mom now. Placenta delivered spontaneously. uterus contracted well. Oxytocin infused in IV. Perineum with a small second degree laceration repaired with 3-0 vicryl suture in 2 layers, no additional anesthesia required. Left michelle-urethral area with a significant laceration into the hymenal ring that was bleeding repaired with 3-0 vicryl with a PS-2 needle with good hemostasis. bladder emptied after to be sure urethra was not bothered by suture. Patient tolerated procedure well.
[2023-03-22] MEDS ORDERED: oxyCODONE 5 MG TABLET PO PRN (17:44)
[2023-03-22] MEDS ORDERED: diphenhydrAMINE 25 MG CAPSULE PO PRN (17:44)
[2023-03-22] MEDS: IBUPROFEN 600 MG TABLET PO SCH ×2 (18:01→23:52)
[2023-03-22] MEDS ORDERED: MEASLES,MUMPS & RUBELLA VACC 0.5 ML VIAL SUBQ ONE (20:58)
[2023-03-22] MEDS ORDERED: VARICELLA VACCINE LIVE/PF 1,350 UNIT/0.5 ML VIAL SUBQ ONE (20:58)
--- NOTE | 2023-03-22 21:00 | PROVIDER PROGRESS NOTE ---
Subjective - Subjective Subjective: rubella and varicella equivocal. vaccines ordered for pp. Objective - Vital Signs/Intake & Output Vital Signs: Vital Signs x48h Temp Pulse Resp BP Pulse Ox 03/22/23 19:44 97.7 F 64 14 108/48 L 98 Intake & Output: Intake & Output 03/19/23 03/20/23 03/21/23 03/22/23 23:59 23:59 23:59 23:59 Intake Total 499.033 Output Total 240 Balance 259.033 - Lab Results Fish Bones: 03/22/23 10:07 Other Labs: Lab Results x24hrs 03/22/23 03/22/23 Range/Units 10:07 10:07 WBC 5.6 (4.8-10.8) x10^3/uL RBC 3.67 L (4.20-5.40) 10^6/uL Hgb 11.6 L (12.0-16.0) g/dL Hct 35.3 L (37.0-47.0) % MCV 96.2 (81.0-99.0) fL MCH 31.6 H (27.0-31.0) pg MCHC 32.9 (32.0-36.0) g/dL RDW 12.5 (12.0-15.0) % Plt Count 213 (130-450) 10^3/uL MPV 10.6 (7.9-10.8) fL Neut # (Auto) 3.3 (1.5-6.6) 10^3/uL Lymph # (Auto) 1.7 (1.5-3.5) 10^3/uL [place] # (Auto) 0.5 (0.0-1.0) 10^3/uL Eos # (Auto) 0.1 (0.0-0.7) 10^3/uL Baso # (Auto) 0.0 (0.0-0.1) 10^3/uL Absolute Nucleated RBC 0.00 x10^3/uL Nucleated RBC % 0.0 /100WBC Blood Type O POSITIVE Antibody Screen NEGATIVE
[2023-03-23] MEDS: IBUPROFEN 600 MG TABLET PO SCH ×3 (05:56→18:07)
[2023-03-23] MEDS: ACETAMINOPHEN 325 MG TABLET PO PRN ×4 (05:56→20:06)
[2023-03-23] MEDS: AMPICILLIN 1 GM in SODIUM CHLORIDE 0.9% MINIBAG 100 ML IV SCH (13:13)
[2023-03-23] MEDS: SODIUM CHLORIDE FLUSH 0.9% 10 ML SYRINGE IVP SCH ×2 (13:13→13:14)
[2023-03-23] MEDS: LACTATED RINGERS 1,000 ML IV SCH (13:15)
--- NOTE | 2023-03-23 16:11 | PROVIDER PROGRESS NOTE ---
Subjective - Subjective Subjective: Subjective Patient reports she is doing well. Lochia appropriate. Denies heavy bleeding. Ambulating. Pelvic and abdominal pain well-controlled. Tolerating oral intake. Diet: Regular. Voiding without difficulty. Passing flatus. Denies BM. Patient is bonding with baby in room Breast feeding going well. Denies feeling lightheaded, dizzy or excessively fatigued. Objective General: Alert, oriented, no apparent distress. Cardiovascular: Regular rate. Regular rhythm. Lungs: No increased work of breathing. Abdomen: Uterus firm. Below umbilicus. No guarding or rebound. Extremities: No pain on palpation. No cords palpated. Distal pulses intact. Assessment and Plan day 1. -Routine care -Anticipate discharge tomorrow Objective - Vital Signs/Intake & Output Vital Signs: Vital Signs x48h Temp Pulse Resp BP Pulse Ox 03/23/23 12:42 98.1 F 59 L 19 117/70 98 Intake & Output: Intake & Output 03/20/23 03/21/23 03/22/23 03/23/23 23:59 23:59 23:59 23:59 Intake Total 1658.750 Output Total 1040 Balance 618.750 - Lab Results Fish Bones: 03/22/23 10:07
[2023-03-23 20:11] VITALS: O2SAT 99
[2023-03-24] MEDS: IBUPROFEN 600 MG TABLET PO SCH ×3 (00:33→14:29)
[2023-03-24] MEDS: ACETAMINOPHEN 325 MG TABLET PO PRN ×3 (00:33→08:49)
[2023-03-24 09:29] VITALS: BP 108/63
--- NOTE | 2023-03-24 13:48 | DISCHARGE SUMMARY ---
"Discharge Summary Admit Date: 03/22/23 Discharge Date: 03/24/23 Discharging Provider: kirk Primary Care Provider: abby Code Status: Attempt Resuscitation Condition at Discharge: Good Discharge Disposition: 01 Home, Self Care - DIAGNOSES Admission Diagnoses: IUP at term active labor ROM Discharge Diagnoses with Status of Each Condition: IUP at term - resolved active labor - s/p ROM - resolved - going well - all milestones met, OK for discharge home with baby follow up scheduled. - HPI History of Present Illness: Pt well, lochia appropriate, frederic PO, + void, + flat, + ambulation Feeding going well -- breast Pt reports ready to go home, has safe home to return to Reviewed: discharge instructions, post- instructions, follow up inst ructions, precautions, precautions regarding: feeding, depression, bleeding, and anticipated post- course All questions answered Pt verbalized understanding VSS NAD Conjunctiva pink, pale sclera +S1, S2 CTAB Breasts soft, not engorged, no nipple cracking Abd soft, NT, ND Fundus firm below umbilicus Perineum bleeding appropriate Ext: neg CCE - CONSULTS | PROCEDURES Procedures: post care support - HOSPITAL COURSE Hospital Course: admitted in labor please see separate delivery report uncomplicated stayed until PPD#2 2'2 GBS positive d/c home with baby - ALLERGIES Allergies/Adverse Reactions: Allergies Allergy/AdvReac Type Severity Reaction Status Date / Time No Known Drug Allergies Allergy Verified 11/01/22 21:31 - MEDICATIONS Home Medications: Ambulatory Orders Medication Instructions Recorded Confirmed Ondansetron Odt [Zofran Odt] 4 mg TL Q6H PRN #10 tablet 02/06/23 - LABS Result Diagrams: 03/22/23 10:07 - QUALITY (Female Hip Fx Only) Was patient sent home on osteoporosis medication?: No - FOLLOW UP Follow Up: 1 week - TIME SPENT Time Spent in Discharge (Minutes): 30"
--- NOTE | 2023-03-24 13:53 | Discharge Plan ---
Discharge Plan Problem Reviewed?: Yes Disposition: Home, Self Care Condition: Good Diet: Regular Activity Restrictions: No Restrictions Shower Restrictions: No Weight Bearing: Full Weight Instruction Topics: Checkup Well Baby Up to 1 Month, Vaginal After, Childbirth Breast Care, Vaginal Incis Care, Depression , Change Expect Parents Health Concerns: routine post routine Plan of Treatment: routine post routine Assessment: healthy OK to D/C home with baby No Smoking: If you smoke, Please STOP! Call for help.
[2023-03-24] MEDS ORDERED: MEASLES,MUMPS & RUBELLA VACC 0.5 ML VIAL SUBQ ONE (15:00)
[2023-03-24] MEDS ORDERED: VARICELLA VACCINE LIVE/PF 1,350 UNIT/0.5 ML VIAL SUBQ ONE (15:00)
--- NOTE | 2023-03-24 15:35 | Labor Flowsheet ---
Labor Flowsheet Datetime Report Generated by CPN: 03/24/2023 15:35 Datetime: 03/24/2023 09:26 VITAL SIGNS NBP Sys/Marylu/Mean (mmHg): 108 : 63 : 73 Pulse: 57 Datetime: 03/23/2023 20:04 SpO2 (%): 99 Datetime: 03/22/2023 16:30 Stage of : Recovery Datetime: 03/22/2023 16:15 Respirations: 16 Datetime: 03/22/2023 15:30 Temperature (C): 36.8 Temperature Route: Oral Datetime: 03/22/2023 15:19 LaborFlag: Labor Datetime: 03/22/2023 15:18 STAGE 2 Pushing: Coached on Pushing Pushing Position: Pushing with Contractions Pushing Progress: Descent with Pushing Datetime: 03/22/2023 15:15 UTERINE ACTIVITY Monitor Mode: External Frequency (min): 2-3 Quality: Strong Duration (sec): 60 Pattern: Normal: <= 5 Contractions in 10 Minutes Resting Tone (Palpate): Relaxed Comments: FHR 130s to 150s. audible deceleration heard. awaiting arrival of dr orozco to start pushi ng. dr parrish in room and secondary staff called in to be baby nurse Datetime: 03/22/2023 14:46 Monitor Interventions for UA: [place] Adjusted Datetime: 03/22/2023 14:45 Monitor Interventions for FHR: Ultrasound Adjusted Datetime: 03/22/2023 14:39 PATIENT CARE IV/Blood Work: IV Bolus Started Patient Position/Activity: Left Lateral Patient Care Comments: peanut ball Datetime: 03/22/2023 14:15 FHR Baseline Rate : 145 Datetime: 03/22/2023 14:12 MEDICATIONS Pitocin (milliunits): Increased to @ 3 Datetime: 03/22/2023 14:00 ASSESSMENT A Monitor Mode: External US FHR Baseline Changes: No Baseline Change Variability: Moderate 6-25 bpm Accelerations: None Decelerations: None Category: Category I Oxygen Method: Room Air Datetime: 03/22/2023 13:08 Contraction Comments: per dr orozco. after reviewing strip, pit may be started as ordered Datetime: 03/22/2023 12:52 COMMUNICATION Communication: Provider at Bedside Communication Comments: Dr Orozco Datetime: 03/22/2023 12:14 I/O Interventions: [place] Cath Inserted Datetime: 03/22/2023 10:59 Antibiotics: Ampicillin IV 2 Gm Datetime: 03/22/2023 10:44 Epidural Procedure: Test Dose Datetime: 03/22/2023 10:35 PROCEDURE TIME OUT Procedure Verify: Correct Patient Identity; Correct Side and Site are Marked; Accurate Procedure Co nsent Form; Correct Patient Position; Addressed Need to Administer Antibiotics or Fluids for Irrigati on; Safety Precautions Based on Patient History or Medication Use ANESTHESIA Anesthesia Plans: Epidural Epidural Positioning: Sitting Datetime: 03/08/2023 12:56 Membranes Ruptured Date/Time: 03/22/2023 08:47 Membranes Rupture Method: Spontaneous Amniotic Fluid Color: Particulate Meconium Amniotic Fluid Amount: Large Datetime: 01/27/2023 18:32 Exam by: Dr. Bear Vaginal Exam Comments: no change from previous exam Datetime: 01/27/2023 16:39 Strip Reviewed by: Dr. Bear Datetime: 01/27/2023 16:23 VAGINAL EXAM Dilatation (cm): 1.0 Station: -3 Vaginal Bleeding: None Cervix, Consistency: Soft Cervix, Position: Posterior Datetime: 01/27/2023 16:13 Provider Notified (Name): Dr. Bear Notification Reason: Status; Uterine Activity
== END 2023-03-24 15:34 | disposition home or self-care (01) | DRG 807 ==
LOC: WFO 09:40 → FBP 09:42 → WFO 10:20 → FBP 10:21
PROVIDERS: ADMIT Obstetrics & Gynecology; ATTEND Obstetrics & Gynecology
PROC: 10E0XZZ Delivery of Products of Conception, External Approach (ICD-10-PCS; principal; 2023-03-22)
PROC: 0KQM0ZZ Repair Perineum Muscle, Open Approach (ICD-10-PCS; 2023-03-22)
PROC: 0UQMXZZ Repair Vulva, External Approach (ICD-10-PCS; 2023-03-22)
DX: O70.1 Second degree perineal laceration during delivery (principal); Z37.0 Single live birth; O99.824 Streptococcus B carrier state complicating childbirth; O77.0 Labor and delivery complicated by meconium in amniotic fluid; O71.82 Other specified trauma to perineum and vulva; O99.214 Obesity complicating childbirth; O99.344 Other mental disorders complicating childbirth; F32.A Depression, unspecified; Z3A.36 36 weeks gestation of pregnancy; Z79.899 Other long term (current) drug therapy
CPT/HCPCS: 59409; 85025; 86850; 86900; 86901; 90716; 99215; A9270; J7120

== ENCOUNTER 2023-03-28 08:00 | Outpatient (CLI) | payer OTHER | END 2023-03-28 23:59 | disposition home or self-care (01) | LOC: LAB.R 08:00 | PROVIDERS: ATTEND Nurse Practitioner | DX: O91.23 Nonpurulent mastitis associated with lactation (principal); G43.909 Migraine, unspecified, not intractable, without status migrainosus | CPT/HCPCS: 87070; 87077; 87181; 87205 ==

== ENCOUNTER 2023-11-15 11:31 | Emergency (ER) | payer OTHER ==
--- NOTE | 2023-11-15 11:52 | ED Physician Documentation ---
PD HPI MHE - Stated complaint Stated Complaint: MHE - Chief complaint Chief Complaint: MHE - History obtained from History obtained from: Patient - Additional information Additional information: She has been depressed for quite some time. She is on sertraline for it but is not getting any active therapy or counseling. It has been slowly worsening and now she questions if she should still be here with some vague SI without plan. She is here because she just cannot stop crying. 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 : Other HEENT: None Psych: None Musculoskeletal: None Derm: None - Past Surgical History Past Surgical History: No - Present Medications Home Medications: Ambulatory Orders Medication Instructions Recorded Confirmed Ondansetron Odt [Zofran Odt] 4 mg TL Q6H PRN #10 tablet 02/06/23 - Allergies Allergies/Adverse Reactions: Allergies Allergy/AdvReac Type Severity Reaction Status Date / Time No Known Drug Allergies Allergy Verified 11/15/23 12:35 - Social History Does the pt smoke?: No Smoking Status: Never smoker - Immunizations Immunizations are current?: Yes PD ED PE NORMAL - Vitals Vital signs reviewed: Yes - General General: Alert and oriented X 3, Other (She is crying) - HEENT HEENT: PERRL, EOMI - Neck Neck: Supple, no meningeal sign, No bony TTP - Cardiac Cardiac: RRR, No murmur - Respiratory Respiratory: No respiratory distress, Clear bilaterally - Abdomen Abdomen: Non tender - Neuro Neuro: Alert and oriented X 3, oil winterizer 2-12 intact Eye Opening: Spontaneous Motor: Obeys Commands Verbal: Oriented GCS Score: 15 Results - Vitals Vitals: Vital Signs - 24 hr 11/15/23 11/15/23 11:34 12:44 Temperature 36.5 C Heart Rate 87 80 Respiratory 18 18 Rate Blood Pressure 137/65 H 128/74 O2 Saturation 100 100 Oxygen O2 Source Room air - Labs Labs: Laboratory Tests 11/15/23 11/15/23 11/15/23 12:00 12:00 13:30 WBC 4.5 L RBC 4.46 Hgb 13.6 Hct 42.1 MCV 94.4 MCH 30.5 MCHC 32.3 RDW 11.9 L Plt Count 355 MPV 8.6 Neut # (Auto) 1.6 Lymph # (Auto) 2.3 [place] # (Auto) 0.4 Eos # (Auto) 0.1 Baso # (Auto) 0.0 Absolute Nucleated RBC 0.00 Nucleated RBC % 0.0 Sodium 137 Potassium 3.7 Chloride 105 Carbon Dioxide 25 Anion Gap 7.0 BUN 9 Creatinine 0.9 Estimated GFR (MDRD) 89 Glucose 91 Calcium 9.8 Magnesium 1.6 L Total Bilirubin 0.5 AST 14 ALT 12 Alkaline Phosphatase 52 Total Creatine Kinase 98 Total Protein 7.7 Albumin 4.2 Globulin 3.5 Albumin/Globulin Ratio 1.2 Lipase 23 TSH 1.39 Urine Color LT. YELLOW Urine Clarity CLEAR Urine pH 7.0 Ur Specific [place] 1.010 Urine Protein NEGATIVE Urine Glucose (UA) NEGATIVE Urine Ketones NEGATIVE Urine Occult Blood TRACE-INTA Urine Nitrite NEGATIVE Urine Bilirubin NEGATIVE Urine Urobilinogen 0.2 (NORMAL) Ur Leukocyte Esterase NEGATIVE Ur Microscopic Review NOT INDICATED Urine Culture Comments NOT INDICATED Urine HCG, Qual NEGATIVE Salicylates < 1.5 Urine Opiates Screen NEGATIVE Ur Buprenorphine Scrn NEGATIVE Ur Oxycodone Screen NEGATIVE Urine Methadone Screen NEGATIVE Acetaminophen 0.3 Ur Barbiturates Screen NEGATIVE Ur Tricyclics Screen NEGATIVE Ur Phencyclidine Scrn NEGATIVE Ur Amphetamine Screen NEGATIVE U Methamphetamines Scrn NEGATIVE U Benzodiazepines Scrn NEGATIVE Urine Cocaine Screen NEGATIVE U Cannabinoids Screen NEGATIVE Ur Drug Screen Comment CUTOFF CONC BELOW: Ethyl Alcohol < 10.0 PD Medical Decision Making - ED course ED course: She presents with suicidal ideation but no plan. We discussed hospitalization and she does not want to as she has to get home to her kids. She was agreeable to a ketamine drip and social work consultation for follow-up and safety planning. After the above interventions she did feel like she was improved. Safety planning was done by the PIZZA DELIVERY DRIVER and she was encouraged to return anytime if worse and to follow-up per the PIZZA DELIVERY DRIVER's directions. CBC, CMP, urinalysis, toxicology testing was all normal/negative. Departure - Departure Disposition: 01 Home, Self Care Clinical Impression: Depressive disorder Condition: Stable Record reviewed to determine appropriate education?: Yes Instructions: ED Depression Comments: Follow the instructions the social media content manager gave you regarding follow-up and return anytime if you are worsening or if you feel unsafe. Forms: PCP List
[2023-11-15 12:05] LABS: BASOPHILS % (AUTO) 0.7 %; EOSINOPHILS # (AUTO) 0.1 10^3/uL (0.0-0.7); EOSINOPHILS % (AUTO) 2.9 %; HCT - HEMATOCRIT 42.1 % (37.0-47.0); HGB - HEMOGLOBIN 13.6 g/dL (12.0-16.0); LYMPHOCYTES # (AUTO) 2.3 10^3/uL (1.5-3.5); LYMPHOCYTES % (AUTO) 51.7 %; MEAN CORPUSCULAR HEMOGLOBIN 30.5 pg (27.0-31.0); MEAN CORPUSCULAR HGB CONC 32.3 g/dL (32.0-36.0); MEAN CORPUSCULAR VOLUME 94.4 fL (81.0-99.0); MEAN PLATELET VOLUME 8.6 fL (7.9-10.8); MONOCYTES # (AUTO) 0.4 10^3/uL (0.0-1.0); MONOCYTES % (AUTO) 9.7 %; NEUTROPHILS # (AUTO) 1.6 10^3/uL (1.5-6.6); PLT - PLATELET COUNT 355 10^3/uL (130-450); RED BLOOD COUNT 4.46 10^6/uL (4.20-5.40); RED CELL DISTRIBUTION WIDTH 11.9 % (12.0-15.0); WHITE BLOOD COUNT 4.5 x10^3/uL (4.8-10.8)
[2023-11-15 12:18] LABS: MAGNESIUM 1.6 mg/dL (1.7-2.3)
[2023-11-15 12:24] LABS: ACETAMINOPHEN 0.3 ug/mL; ALBUMIN 4.2 g/dL (3.2-5.5); ALBUMIN/GLOBULIN RATIO 1.2 (1.0-2.2); ALKALINE PHOSPHATASE 52 IU/L (42-121); ALT ALANINE AMINOTRANSFERASE 12 IU/L (10-60); AST ASPARTATE AMINOTRANSFERASE 14 IU/L (10-42); BILIRUBIN,TOTAL 0.5 mg/dL (0.2-1.0); BUN - BLOOD UREA NITROGEN 9 mg/dL (6-20); CALCIUM 9.8 mg/dL (8.5-10.3); CARBON DIOXIDE - CO2 25 mmol/L (21-32); CHLORIDE 105 mmol/L (101-111); CK- CREATINE KINASE 98 IU/L (30-223); CREATININE 0.9 mg/dL (0.6-1.3); ETOH - ETHANOL < 10.0 mg/dL; GFR - MDRD 89 (>89); GLUCOSE 91 mg/dL (74-104); LIPASE 23 U/L (11-82); POTASSIUM 3.7 mmol/L (3.5-4.5); SODIUM 137 mmol/L (135-145); TOTAL PROTEIN 7.7 g/dL (6.4-8.9)
[2023-11-15 12:28] LABS: SALICYLATE < 1.5 mg/dL
[2023-11-15 12:35] LABS: THYROID STIMULATING HORMONE 1.39 uIU/mL (0.34-5.60)
[2023-11-15] MEDS: KETAMINE (50MG/ML) 40 MG in SODIUM CHLORIDE 0.9% 100ML 100 ML IV STA (13:32)
[2023-11-15 13:44] LABS: BILIRUBIN,URINE NEGATIVE (NEGATIVE); GLUCOSE, URINE (UA) NEGATIVE (NEGATIVE); KETONES,URINE (UA) NEGATIVE (NEGATIVE); LEUKOCYTE ESTERASE, URINE NEGATIVE (NEGATIVE); NITRITE,URINE NEGATIVE (NEGATIVE); OCCULT BLOOD,URINE TRACE-INTA (NEGATIVE); PROTEIN,URINE NEGATIVE (NEGATIVE); UROBILINOGEN,URINE 0.2 (NORMAL) E.U./dL (NORMAL)
[2023-11-15 13:45] LABS: CLARITY,URINE CLEAR (CLEAR)
[2023-11-15 13:46] LABS: HCG UR QUAL NEGATIVE
[2023-11-15 13:55] LABS: AMPHETAMINE SCREEN,URINE NEGATIVE (NEGATIVE); BARBITURATE SCREEN,UR NEGATIVE (NEGATIVE); BENZODIAZEPINES SCREEN, URINE NEGATIVE (NEGATIVE); BUPRENORPHINE SCREEN, URINE NEGATIVE (NEGATIVE); COCAINE SCREEN URINE NEGATIVE (NEGATIVE); METHADONE SCREEN, URINE NEGATIVE (NEGATIVE); METHAMPHETAMINES SCREEN, URINE NEGATIVE (NEGATIVE); OPIATE SCREEN, URINE NEGATIVE (NEGATIVE); OXYCODONE SCREEN, URINE NEGATIVE (NEGATIVE); THC CANNABINOID SCREEN, URINE NEGATIVE (NEGATIVE); TRICYCLIC ANTIDEPRESSANT,URINE NEGATIVE (NEGATIVE)
[2023-11-15] MEDS: ACETAMINOPHEN 500 MG TABLET PO STA (15:16)
[2023-11-15 16:27] VITALS: BP 132/84; O2SAT 98
== END 2023-11-15 16:00 | disposition home or self-care (01) ==
LOC: ED 11:31
DX: F32.A Depression, unspecified (principal); Z79.899 Other long term (current) drug therapy
CPT/HCPCS: 36415; 80053; 80143; 80179; 80306; 81003; 81025; 82077; 82550; 83690; 83735; 84443; 85025; 99283; A9270; 81001; 87086